=== PATIENT | male | born 1955 | race Caucasian/White ===

== ENCOUNTER → 2021-10-17 | Outpatient (CLI) | payer MEDICARE, SELFPAY ==
[2021-10-17 11:54] LABS: Absolute Lymphocyte Count 2.51 X10^3/uL (0.83-4.51); Absolute Neutrophil Count 5.7 X10^3/uL (2.0-7.7); Basophil# 0.05 X10^3/uL; Basophil% 0.5 % (0-1); Eosinophil# 0.53 X10^3/uL; Eosinophils% 5.5 % (0-5); Hematocrit 41.4 % (40-54); Hemoglobin 13.4 g/dL (13.0-16.5); Lymphocyte # 2.51 X10^3/ul (0.83-4.51); Lymphocyte % 26.1 % (19-41); Mean Corp Hgb Conc 32.4 g/dL (32-36); Mean Corpuscular Hgb 30.2 pg (27.0-32.0); Mean Corpuscular Volume 93.2 fL (80-94); Mean Platelet Vol. 9.7 fl (6.2-12.0); Monocyte% 8.3 % (0-10); NRBC Flagged by Analyzer 0 % (0-5); Neutrophil % 59.2 % (47-70); Platelet Count 265 K/mm3 (150-450); RBC Distribution Width CV 14.6 % (11.6-14.6); Red Blood Count 4.44 M/mm3 (4.6-6.2); White Blood Count 9.6 K/mm3 (4.4-11.0)
[2021-10-17 13:00] LABS: ALB/GLOB Ratio 0.7 RATIO (0.9-2.4); AST(SGOT) 18 U/L (15-37); Alanine Aminotransfer ALT/SGPT 17 U/L (16-61); Albumin, Serum 3.3 g/dL (3.2-5.0); Alkaline Phosphatase 87 U/L (45-117); Anion Gap 4 (5-15); BUN 19 mg/dL (7-18); BUN/Creat Ratio 13.7 RATIO (10-20); Calcium,Total 8.8 mg/dL (8.5-10.1); Chloride 108 mmol/L (98-107); Cholesterol 210 mg/dL (200); Creatinine, Serum 1.39 mg/dL (0.70-1.30); EST Glomerular Filtration Rate 54 mL/min (>60); Est Glom Filt Rate - Afr Amer 66 mL/min (>60); Globulin 4.8 g/dL (2.2-4.2); Glucose 81 mg/dL (74-106); High Density Lipoprotein 52 mg/dL; PSA,Total - Annual Screen 0.93 ng/mL (0.00-4.00); Potassium 4.9 mmol/L (3.5-5.1); Protein, Total 8.1 g/dL (6.4-8.2); Sodium Level 138 mmol/L (136-145); Thyroid Stim Hormone (TSH) 2.06 uIU/mL (0.358-3.74); Triglycerides 46 mg/dL; Very Low Density Lipoprotein 9 mg/dL (5-40)
[2021-10-17 13:46] LABS: Hepatitis C Antibody Non-Reactive (Nonreactive)
[2021-10-20 15:08] LABS: PROEL- A/G Ratio 1.1 (0.7-1.7); PROEL- Albumin 3.9 g/dL (2.9-4.4); PROEL- Alpha-1 Globulin 0.2 g/dL (0.0-0.4); PROEL- Alpha-2 Globulin 0.9 g/dL (0.4-1.0); PROEL- Beta Globulin 1.1 g/dL (0.7-1.3); PROEL- Gamma Globulin 1.4 g/dL (0.4-1.8); PROEL- Globulin, Total 3.5 g/dL (2.2-3.9); PROEL- TOTAL PROTEIN 7.4 g/dL (6.0-8.5)
== END | disposition home or self-care (01) ==
LOC: LAB 10:28
PROVIDERS: PCP Internal Medicine; Referring Provider Internal Medicine; Visit Provider Internal Medicine
DX: E78.00 Pure hypercholesterolemia, unspecified (principal); Z11.59 Encounter for screening for other viral diseases; Z12.5 Encounter for screening for malignant neoplasm of prostate
CPT/HCPCS: 36415; 80053; 80061; 84153; 84165; 84443; 85025; 86803; G0103

== ENCOUNTER → 2021-10-26 | Outpatient (CLI) | payer MEDICARE, SELFPAY ==
[2021-10-31 12:07] LABS: PROEL- A/G Ratio 0.9 (0.7-1.7); PROEL- Albumin 3.6 g/dL (2.9-4.4); PROEL- Alpha-1 Globulin 0.3 g/dL (0.0-0.4); PROEL- Alpha-2 Globulin 0.9 g/dL (0.4-1.0); PROEL- Beta Globulin 1.2 g/dL (0.7-1.3); PROEL- Gamma Globulin 1.5 g/dL (0.4-1.8); PROEL- Globulin, Total 3.8 g/dL (2.2-3.9); PROEL- TOTAL PROTEIN 7.4 g/dL (6.0-8.5); PROELU- Albumin, Urine 36.5 % (.); PROELU- Alpha-1-Globulin,Ur 0.7 % (.); PROELU- Alpha-2-Globulin,Ur 5.1 % (.); PROELU- Beta Globulin, Ur 20.7 % (.); PROELU- Gamma Globulin, Ur 36.9 % (.)
== END | disposition home or self-care (01) ==
LOC: LAB 10:01
PROVIDERS: PCP Internal Medicine; Referring Provider Internal Medicine; Visit Provider Internal Medicine
DX: Z85.828 Personal history of other malignant neoplasm of skin (principal)
CPT/HCPCS: 36415; 84165; 84166

== ENCOUNTER → 2022-04-23 | Outpatient (CLI) | payer MEDICARE, SELFPAY ==
--- NOTE | 2022-04-23 10:37 | ECHOD_ITS ---
Reason For Study: ABN EKG Procedure This was a 2D Doppler, Color Flow transthoracic echocardiogram. Exam performed in department. Left Ventricle Normal LV size. Left ventricular systolic function is normal. Stage 1 diastolic dysfunction. No regional wall motion abnormalities noted. Right Ventricle Normal RV size. Normal systolic function. Atria Normal left atrium. Normal right atrium. Mitral Valve Normal mitral valve. Tricuspid Valve Normal tricuspid valve. Mild (1+) tricuspid valve insufficiency. Pulmonary artery systolic pressure is 30 mmHg. Aortic Valve Normal aortic valve. Pulmonic Valve Normal pulmonic valve. Great Vessels Normal aortic root. The pulmonary artery is normal size. Normal inferior vena cava. Pericardium/Pleural No pericardial effusion. MMode/2D Measurements & Calculations LVIDd: 5.1 cm IVSd: 1.1 cm Ao root diam: 3.5 cm LVIDs: 4.2 cm LVPWd: 0.96 cm FS: 17.4 % LAV(MOD-sp4): 67.1 ml LVAd ap4: 32.6 cm2 SV(MOD-sp4): 59.1 ml LVLd ap4: 8.4 cm EDV(MOD-sp4): 107.3 ml EDV(sp4-el): 107.7 ml LVAs ap4: 19.5 cm2 LVLs ap4: 7.0 cm ESV(MOD-sp4): 48.2 ml ESV(sp4-el): 45.9 ml EF(MOD-sp4): 55.0 % EF(sp4-el): 57.4 % SV(sp4-el): 61.8 ml LA A4 area: 21.4 cm2 RA A4 area: 14.2 cm2 Time Measurements MV dec time: 0.15 sec Doppler Measurements & Calculations MV E max damon: 65.8 cm/sec Lat Peak E' Damon: 11.2 cm/sec Med Peak E' Damon: 9.5 cm/sec MV A max damon: 75.2 cm/sec E/E' lat: 5.9 E/E' med: 6.9 MV E/A: 0.87 MV V2 max: 84.7 cm/sec Ao V2 max: 102.8 cm/sec MV max P.9 mmHg MV dec slope: 520.9 cm/sec2 Ao max P.2 mmHg MV V2 mean: 61.3 cm/sec Ao V2 mean: 71.8 cm/sec MV mean P.6 mmHg Ao mean P.3 mmHg MV V2 VTI: 25.7 cm Ao V2 VTI: 23.1 cm AV (velocity ratio): 0.91 LV V1 max: 100.0 cm/sec PA V2 max: 86.2 cm/sec TR max damon: 251.2 cm/sec LV V1 max P.0 mmHg PA V2 mean: 55.9 cm/sec TR max P.2 mmHg LV V1 mean P.3 mmHg LV V1 mean: 71.1 cm/sec LV V1 VTI: 21.1 cm ECHO/Echo Complete Interpretation Summary Normal LV size. Stage 1 diastolic dysfunction. Left ventricular systolic function is normal. Pulmonary artery systolic pressure is 30 mmHg. Ordering Physician: Haylee Elizondo Referring Physician: Haylee Elizondo Performed By: Marielle Mccoy RCS
--- NOTE | 2022-04-23 10:37 | EKG12_ITS ---
Test Reason : ABN EKG Blood Pressure : / mmHG Vent. Rate : 072 BPM Atrial Rate : 072 BPM P-R Int : 150 ms QRS Dur : 086 ms QT Int : 372 ms P-R-T Axes : 076 004 -09 degrees QTc Int : 407 ms Normal sinus rhythm Normal ECG Confirmed by SHASHANK COBURN, RONALD ([id number]), newspaper editor CY WELLS ([id number]) on 04/24/2022 9:50:53 AM Referred By: Haylee Elizondo Confirmed By:RONALD ENCARNACION MD
== END | disposition home or self-care (01) ==
LOC: CVS 10:35
PROVIDERS: PCP Internal Medicine; Referring Provider Nurse Practitioner Family; Visit Provider Nurse Practitioner Family
DX: R94.31 Abnormal electrocardiogram [ECG] [EKG] (principal); R09.89 Other specified symptoms and signs involving the circulatory and respiratory systems
CPT/HCPCS: 93005; 93306

== ENCOUNTER → 2023-10-15 | Outpatient (CLI) | payer MEDICARE, SELFPAY ==
--- NOTE | 2023-10-15 14:36 | CT_ITS ---
STUDY: LOW DOSE CT LUNG CANCER SCREENING REASON FOR EXAM: Male, 68 years old. LDCT FOR LUNG CA SCREEN -- Current smoker RADIATION DOSAGE (If Supplied By Facility): CTDIvol = ( 2.39 ) mGy, DLP = ( 86.08 ) mGycm TECHNIQUE: No contrast was administered. Low dose technique was utilized (average mAS-38 and kVp 120). 1.25 mm axial source images with a slice interval of 1.25-mm were reconstructed in lung windows. 2.5 mm axial source images with a slice interval of 2.5-mm were reconstructed in lung windows. 5.0 mm axial source images with a slice interval of 5.0-mm were reconstructed in soft tissue windows. COMPARISON: None. NODULES: No suspicious nodules are seen. Emphysema: Hyperinflation. Emphysematous changes. Bullous formation in the medial aspect of the right upper lobe. Scarring at the right lung base. Calcified granulomas in the posterior aspect of the left lower lobe. Endobronchial lesion: None Aorta: Atherosclerotic plaque formation of the aortic arch. CORONARY ARTERIES: Coronary artery calcification is seen. Heart: Unremarkable Pulmonary artery: Unremarkable Mediastinal nodes: Small mediastinal lymph nodes. Other chest and abdominal findings: CT/Low Dose CT Lung Screening IMPRESSION: Lung-RADS category 2 - Continue annual screening with LDCT in 12 months. IMPORTANT NOTES FOR USE: ACR Lung-RADS Version 1.1 Assessment Categories Release Date: 2018 Category: Coded 0-4 bases on nodule(s) with highest degree of suspicion. Negative screen is defined as categories 1 and 2; a positive screen is defined as categories 3 and 4. Category 3 and 4A nodules that are unchanged on interval CT should be coded as category 2, and individuals returned to screening in 12 months. Category 4X: Category 3 or 4 nodules with additional imaging findings that increase the suspicion of lung cancer, such as spiculation, GGN that doubles in size in 1 year, enlarged lymph notes, etc. Category Modifiers: S (significant finding unrelated to lung cancer) Electronically Signed: Ruddy Rucker MD at 15:42 EDT ,
== END | disposition home or self-care (01) ==
LOC: CT 14:35
PROVIDERS: PCP Internal Medicine; Referring Provider Internal Medicine; Visit Provider Internal Medicine
DX: F17.210 Nicotine dependence, cigarettes, uncomplicated (principal)
CPT/HCPCS: 71271

== ENCOUNTER → 2023-11-15 | Outpatient (CLI) | payer MEDICARE, SELFPAY | END | disposition home or self-care (01) | LOC: PSN 09:27 | PROVIDERS: PCP Internal Medicine; Referring Provider Internal Medicine; Visit Provider Internal Medicine | DX: J43.9 Emphysema, unspecified (principal) | CPT/HCPCS: 94060; 94726; 94729 ==

== ENCOUNTER 2024-11-02 16:38 | Observation (INO) | payer MEDICARE, SELFPAY ==
--- NOTE | 2024-10-22 10:30 | EKG12_ITS ---
Test Reason : PREOP Blood Pressure : */* mmHG Vent. Rate : 59 BPM Atrial Rate : 59 BPM P-R Int : 160 ms QRS Dur : 76 ms QT Int : 406 ms P-R-T Axes : 67 6 6 degrees QTcB Int : 401 ms Sinus bradycardia Nonspecific ST and T wave abnormality Abnormal ECG Confirmed by ALYSA DAVISON ([id number]), rewrite editor CY WELLS ([id number]) on 10/23/2024 5:44:42 AM Referred By: Apolinar Chavez Confirmed By: ALYSA DAVISON
[2024-10-22 11:17] LABS: Hematocrit 42.1 % (40-54); Hemoglobin 13.6 g/dL (13.0-16.5); Immature Granulocytes Count 0.030 X10^3/uL (0.0-0.0); Mean Corp Hgb Conc 32.3 g/dL (32-36); Mean Corpuscular Volume 92.9 fL (80-94); Mean Platelet Vol. 9.1 fl (6.2-12.0); NRBC Flagged by Analyzer 0 % (0-5); Platelet Count 252 K/mm3 (150-450); RBC Distribution Width CV 14.0 % (11.6-14.6); RBC Distribution Width SD 47.8 fl (35.1-43.9); Red Blood Count 4.53 M/mm3 (4.6-6.2); White Blood Count 9.0 K/mm3 (4.4-11.0)
[2024-10-22 12:02] LABS: Magnesium 2.0 mg/dL (1.5-2.2)
[2024-10-22 12:14] LABS: Anion Gap 8 (5-15); BUN 22 mg/dL (4-19); BUN/Creat Ratio 15.3 RATIO (10-20); Calcium,Total 9.4 mg/dL (7.6-11.0); Carbon Dioxide 25.0 mmol/L (21.0-32.0); Chloride 106 mmol/L (98-108); Glucose 106 mg/dL (70-99); Potassium 4.8 mmol/L (3.3-5.1)
--- NOTE | 2024-10-22 12:32 | PAT.ANESEVAL ---
Pre-Assessment Diagnosis/Proposed Procedure Planned Operative Procedure(s): ERAS LUMBAR LAMINECTOMY L3-4 L4-5 Anesthesia History Anesthesia History - surgical corsetier: Anesthesia History - surgical corsetier Hx Hospitalization No 10/19/24 14:03 Any Problems With Anesthesia No 10/19/24 14:03 Cholinesterase deficiency No 10/19/24 14:03 You/Your Family Experience No 10/19/24 14:03 fever (hyperthermia) with Relationship Recent Exposure to Contagious Disease Does patient have nerve No 10/19/24 14:03 stimulator Patient instructed to have device shut off --Does patient have Pacemaker or ICD? When Was Last Pacemaker Check QUESTION #4 FULL TEXT: You/Your Family Experience fever (hyperthermia) with Anesthesia Last Oral Intake Last Oral intake: Last Oral Intake NPO since Meds taken in AM with sips of water? Meds patient instructed to take am of surgery PONV PONV - surgical corsetier: PONV - surgical corsetier Female No 10/19/24 14:03 HX of Motion Sickness No 10/19/24 14:03 HX of N/V After Surgery No 10/19/24 14:03 Non-Smoker Yes 10/19/24 14:03 Duration of Surgery greater Yes 10/19/24 14:03 than 60 minutes Number of Risk Factors 2 10/19/24 14:03 PONV Score Moderate Risk 10/19/24 14:03 Height & Weight Height & Weight: Anesthesia: Height & Weight Height 6 ft 09/15/24 09:47 Respiratory Assessment Respiratory Assessment - surgical corsetier: Respiratory Tract Infection Hx - surgical corsetier Hx Respiratory Tract Infection No 10/19/24 14:03 STOP Sleep Apnea STOP Sleep Apnea - surgical corsetier: STOP Sleep Apnea - surgical corsetier Hx Hypertension Yes: CONTROLLED WITH MED 10/19/24 14:03 Hx Sleep Apnea No 10/19/24 14:03 CPAP BIPAP Do you snore loudly (louder Yes 10/19/24 14:03 than talking or can be heard Do you often feel tired/ No 10/19/24 14:03 fatigued/ sleepy during daytime? Has anyone observed you stop Yes 10/19/24 14:03 breathing during sleep? STOP Results Positive 10/19/24 14:03 QUESTION #5 FULL TEXT : Do you snore loudly (louder than talking or can be heard through closed doors)? 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 Specify any problems Hx of Preganancy in last 3 N/A 10/19/24 14:03 Months Nurse Filling Out Transfusion DSCHRIBER 10/19/24 14:03 & Questions: Date: 10/19/24 10/19/24 14:03 Time: 14:05 10/19/24 14:03 Patient unable to answer at this time (ie. confused, unrespo /Reproduction History /Reproductive History - surgical corsetier: /Reproductive Hx- surgical corsetier Hx Now No 10/19/24 14:03 Gestational Age (in weeks): EDC: Hx Hx Para Hx Section SAB No 10/19/24 14:03 PFSH Medical History (Updated 10/19/24 @ 14:12 by Aminah Brink) Wears glasses Cancer Marijuana use Arthritis High cholesterol Back pain History of diverticulitis COPD (chronic obstructive pulmonary disease) Non-smoker Cardiology follow-up encounter History of pain when walking Hypertension History of stress test PAD (peripheral artery disease) Vertigo, intermittent Syncope and collapse Home Medications ?Medication ?Instructions ?Recorded ?Last Taken ?Type aspirin 81 mg tablet,delayed 81 mg PO QDAY 03/25/24 Unknown History release atenolol 25 mg tablet 12.5 mg PO QHS 03/25/24 Unknown History cholecalciferol (vitamin D3) 75 75 mcg PO QDAY 03/25/24 Unknown History mcg (3,000 unit) tablet coenzyme Q10 100 mg capsule 100 mg PO QDAY 03/25/24 Unknown History (CoQ-10) cyanocobalamin (vitamin B-12) 500 500 mcg sublingual QDAY 03/25/24 Unknown History mcg disintegrating tablet,sublingual vitamin K2 100 mcg capsule 100 mcg PO QDAY 03/25/24 Unknown History zinc sulfate 50 mg zinc (220 mg) 50 mg PO QDAY 03/25/24 Unknown History capsule (Zinc-220) Allergy/AdvReac Type Severity Reaction Status Date / Time No Known Allergies Allergy Verified 10/19/24 13:58 Family History Grandmother Heart disease Father Heart disease Brother Diabetes Surgical History (Updated 10/19/24 @ 14:12 by Aminah Brink) Hx of colonoscopy History of Mohs surgery for squamous cell carcinoma of skin Hx of appendectomy Social History Smoking Status: Former smoker Tobacco: How many years used: 53 alcohol intake: never substance use type: does not use Audit: Pertinent Findings Pertinent Findings EKG Perinent findings: October 22, 2024. Sinus bradycardia at [address] and T wave abnormality. Echo (EF%) pertinent findings: April 23, 2022. Normal LV function. PASP is 30 mmHg. No aortic stenosis noted. Recommendation Anesthesia Recommendation Anesthesia recommendation: OPTIMIZED for anesthesia
[2024-10-22 19:17] LABS: PSA,Total - Annual Screen 0.84 ng/mL (0.02-4.00)
[2024-10-22 19:31] LABS: Cholesterol 196 mg/dL (<=200); Low Density Lipoprotein Calc. 135 mg/dL; Triglycerides 80 mg/dL; Very Low Density Lipoprotein 16 mg/dL (5-40); cholesterol:hdl ratio screen 4.36
[2024-11-02] VITALS (13 sets, daily range): BP systolic 106–156; BP diastolic 51–79; PULSE 63–83; RESP 14–18; TEMP 36.1–37.5; O2SAT 94–100; BMI 26.9
[2024-11-02] MEDS: Magnesium 1 GM over 15 mins IV (12:40)
[2024-11-02] MEDS: Lactated Ringers 1,000 ML 15 ML IV ×2 (12:40→16:52)
--- NOTE | 2024-11-02 13:12 | PCM.PRE.AN2 ---
ASA Classification* ASA Classification ASA Classification: 2 Assessment & Plan Anesthesia* Anesthesia Assessment Anesthesia Assessment: Discussed sedation and/or anesthesia options, risks, benefits, and alternatives with patient/parents/legal guardian/POA. Questions invited. The patient/parents/legal guardian/POA seems to understand and agrees to proceed with anesthesia plan. Reviewed the physical assessment, medical history, allergy history and patient home medications list prior to surgery/procedure/anesthetic and documented any changes. Performed airway and anesthesia risk assessments. Anesthesia Type Anesthesia Type: General History Source History Obtained from:: Patient and Chart Anesthesia Focused Assessment* Temperature: 99.5 F Pulse Rate: 83 Blood Pressure: 156/79 Respiratory Rate: 16 Pulse Ox: 98 Oxygen Delivery Method: Room Air Airway Assessment Mouth opens: >3 cm Mallampati Score: II Teeth Condition: Chipped/Broken Neck Range of motion (ROM): Full ROM Labs Anesthesia Preop lab: CBC WBC 9.0 K/mm3 (4.4-11.0) 10/22/24 10:56 10/22/24 RBC 4.53 M/mm3 (4.6-6.2) L 10/22/24 10:56 10/22/24 Hgb 13.6 g/dL (13.0-16.5) 10/22/24 10:56 10/22/24 Hct 42.1 % (40-54) 10/22/24 10:56 10/22/24 Plt Count 252 K/mm3 (150-450) 10/22/24 10:56 10/22/24 CHEMISTRY Potassium 4.8 mmol/L (3.3-5.1) 10/22/24 10:56 10/22/24 Sodium 140 mmol/L (133-145) 10/22/24 10:56 10/22/24 Magnesium 2.0 mg/dL (1.5-2.2) 10/22/24 10:57 10/22/24 BUN 22 mg/dL (4-19) H 10/22/24 10:56 10/22/24 Creatinine 1.42 mg/dL (0.70-1.20) H 10/22/24 10:56 10/22/24 Glucose 106 mg/dL (70-99) H 10/22/24 10:56 10/22/24 TSH 2.320 uIU/mL (0.300-4.200) 10/22/24 10:57 10/22/24 COAG Pre-Assessment Diagnosis/Proposed Procedure Planned Operative Procedure(s): ERAS LUMBAR LAMINECTOMY L3-4 L4-5 Anesthesia History Anesthesia History - food service aide: Anesthesia History - food service aide Hx Hospitalization No 10/19/24 14:03 Any Problems With Anesthesia No 10/19/24 14:03 Cholinesterase deficiency No 10/19/24 14:03 You/Your Family Experience No 10/19/24 14:03 fever (hyperthermia) with Relationship Recent Exposure to Contagious No 11/02/24 12:36 Disease Does patient have nerve No 10/19/24 14:03 stimulator Patient instructed to have device shut off --Does patient have Pacemaker or ICD? When Was Last Pacemaker Check QUESTION #4 FULL TEXT: You/Your Family Experience fever (hyperthermia) with Anesthesia Last Oral Intake Last Oral intake: Last Oral Intake NPO since 23:00 11/02/24 12:36 Meds taken in AM with sips of No 11/02/24 12:36 water? Meds patient instructed to take am of surgery PONV PONV - food service aide: PONV - food service aide Female No 10/19/24 14:03 HX of Motion Sickness No 10/19/24 14:03 HX of N/V After Surgery No 10/19/24 14:03 Non-Smoker Yes 10/19/24 14:03 Duration of Surgery greater Yes 10/19/24 14:03 than 60 minutes Number of Risk Factors 2 10/19/24 14:03 PONV Score Moderate Risk 10/19/24 14:03 Height & Weight Height & Weight: Anesthesia: Height & Weight Height 6 ft 11/02/24 12:36 Weight: 90 kg 11/02/24 12:36 Body Mass Index (BMI) 26.9 11/02/24 12:36 Respiratory Assessment Respiratory Assessment - food service aide: Respiratory Tract Infection Hx - food service aide Hx Respiratory Tract Infection No 10/19/24 14:03 STOP Sleep Apnea STOP Sleep Apnea - food service aide: STOP Sleep Apnea - food service aide Hx Hypertension Yes: CONTROLLED WITH MED 10/19/24 14:03 Hx Sleep Apnea No 10/19/24 14:03 CPAP BIPAP Do you snore loudly (louder Yes 10/19/24 14:03 than talking or can be heard Do you often feel tired/ No 10/19/24 14:03 fatigued/ sleepy during daytime? Has anyone observed you stop Yes 10/19/24 14:03 breathing during sleep? STOP Results Positive 10/19/24 14:03 QUESTION #5 FULL TEXT : Do you snore loudly (louder than talking or can be heard through closed doors)? 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 Specify any problems Hx of Preganancy in last 3 N/A 10/19/24 14:03 Months Nurse Filling Out Transfusion DSCHRIBER 10/19/24 14:03 & Questions: Date: 10/19/24 10/19/24 14:03 Time: 14:05 10/19/24 14:03 Patient unable to answer at this time (ie. confused, unrespo /Reproduction History /Reproductive History - food service aide: /Reproductive Hx- food service aide Hx Now No 10/19/24 14:03 Gestational Age (in weeks): EDC: Hx Hx Para Hx Section SAB No 10/19/24 14:03 Active Medications Active Medications: Current Medications Generic Name Dose Route Start Last Admin Trade Name Freq PRN Reason Stop Dose Admin Acetaminophen 1,000 mg 11/02/24 14:15 11/02/24 12:40 Acetaminophen 500 Mg Tablet PO 11/02/24 14:16 1,000 mg PREOP ONE Administration Cefazolin Sodium 2 gm/ Sodium 110 mls @ 150 mls/hr 11/02/24 14:15 Chloride IV 11/02/24 14:58 INTRAOP ONE Tranexamic Acid 1,000 mg/ 110 mls @ 440 mls/hr 11/02/24 14:15 Sodium Chloride IV 11/02/24 14:29 INTRAOP ONE Tranexamic Acid 1,000 mg/ 110 mls @ 440 mls/hr 11/02/24 14:15 Sodium Chloride IV 11/02/24 14:29 INTRAOP ONE Magnesium Sulfate 1 gm/ 102 mls @ 408 mls/hr 11/02/24 14:15 11/02/24 12:40 Dextrose IV 11/02/24 14:29 408 mls/hr PREOP ONE Administration Lactated Ringer's 1,000 mls @ 15 mls/hr 11/02/24 12:15 11/02/24 12:40 IV 15 mls/hr .Q48H REGLA Administration Insulin Human Lispro 1 - 6 unit 11/02/24 14:15 Insulin Lispro 100 Unit/Ml Insuln.Pen SC 11/02/24 18:00 Q4H PRN PRN BG>/= 180, SEE PROTOCOL Protocol PFSH Medical History Wears glasses Cancer Marijuana use Arthritis High cholesterol Back pain History of diverticulitis COPD (chronic obstructive pulmonary disease) Non-smoker Cardiology follow-up encounter History of pain when walking Hypertension History of stress test PAD (peripheral artery disease) Vertigo, intermittent Syncope and collapse Home Medications ?Medication ?Instructions ?Recorded ?Last Taken ?Type aspirin 81 mg tablet,delayed 81 mg PO QDAY 03/25/24 10/26/24 History release atenolol 25 mg tablet 12.5 mg PO QHS 03/25/24 11/01/24 21:35 History cholecalciferol (vitamin D3) 75 75 mcg PO QDAY 03/25/24 10/29/24 History mcg (3,000 unit) tablet coenzyme Q10 100 mg capsule 100 mg PO QDAY 03/25/24 10/29/24 History (CoQ-10) cyanocobalamin (vitamin B-12) 500 500 mcg sublingual QDAY 03/25/24 10/29/24 History mcg disintegrating tablet,sublingual vitamin K2 100 mcg capsule 100 mcg PO QDAY 03/25/24 10/29/24 History zinc sulfate 50 mg zinc (220 mg) 50 mg PO QDAY 03/25/24 10/29/24 History capsule (Zinc-220) Allergy/AdvReac Type Severity Reaction Status Date / Time No Known Allergies Allergy Verified 11/02/24 12:35 Family History Grandmother Heart disease Father Heart disease Brother Diabetes Surgical History Hx of colonoscopy History of Mohs surgery for squamous cell carcinoma of skin Hx of appendectomy Social History Smoking Status: Former smoker Tobacco: How many years used: 53 alcohol intake: never substance use type: does not use Review of Systems (Anesthesia) ROS Narrative System reviewed and no additional complaints, except as documented.
--- NOTE | 2024-11-02 13:58 | PCM.HP.BLA ---
History and Physical Date of Admission: 11/02/24 MR#: [id number] Acct: [id number] Name: ALFREDO BARROSO Rep #: [id number] : 1955 Provider: Dr. Apolinar Chavez MD Age/Sex: 69/M Location: [facility] [email or web address] Status: Signed Intake Vital Signs 09/15/2508:47 10/23/2512:15 Height 6 ft 6 ft Weight: 212 lb 2 oz 209 lb BMI 28.8 28.3 Intake Visit Reasons: lumbar spine Chief Complaint: Lumbar spine preo op Accompanied by: Is patient in pain?: Yes Pain scale (1-10): 2 Allergies No Known Allergies Allergy (Verified 10/23/24 13:20) Medications ?Medication ?Instructions ?Recorded ?Confirmed ?Type aspirin 81 mg tablet,delayed 81 mg PO QDAY 03/25/24 10/23/24 History release atenolol 25 mg tablet 12.5 mg PO QHS 03/25/24 10/23/24 History cholecalciferol (vitamin D3) 75 75 mcg PO QDAY 03/25/24 10/23/24 History mcg (3,000 unit) tablet coenzyme Q10 100 mg capsule 100 mg PO QDAY 03/25/24 10/23/24 History (CoQ-10) cyanocobalamin (vitamin B-12) 500 500 mcg sublingual QDAY 03/25/24 10/23/24 History mcg disintegrating tablet,sublingual vitamin K2 100 mcg capsule 100 mcg PO QDAY 03/25/24 10/23/24 History zinc sulfate 50 mg zinc (220 mg) 50 mg PO QDAY 03/25/24 10/23/24 History capsule (Zinc-220) Have you fallen in the past year?: No PFSH Medical History Wears glasses Cancer Marijuana use Arthritis High cholesterol Back pain History of diverticulitis COPD (chronic obstructive pulmonary disease) Non-smoker Cardiology follow-up encounter History of pain when walking Hypertension History of stress test PAD (peripheral artery disease) Vertigo, intermittent Syncope and collapse Surgical History Hx of colonoscopy History of Mohs surgery for squamous cell carcinoma of skin Hx of appendectomy Family History Grandmother Heart diseaseFather Heart diseaseBrother Diabetes Social History Smoking Status: Former smoker Tobacco: How many years used: 53 alcohol intake: never substance use type: does not use HPI lumbar spine Details: This documentation accurately reflects the service provided and the decisions made by me, Dr. Apolinar Chavez MD 10/23/24 1315. Part of today?s visit was documented by Gilberto Mercado MA, acting as scribe. ALFREDO BARROSO is a 69 year old M here today for lumbar spine pre op. Patient states that his pain is a 2 today. He states that he would to discuss about the surgery, and what he needs to do for the surgery. Patient would like to know what he can and can't don after the surgery. He states that he would like all the details about recovery. The patient is a 69-year-old male presenting with symptoms of lumbar spinal stenosis and neurogenic claudication. The patient reports a history of lumbar spinal stenosis, characterized by significant nerve compression at the L3-4 and L4-5 levels due to arthritic changes. The condition has led to neurogenic claudication, with symptoms including bilateral leg numbness and pain that worsens with standing and walking, and improves with sitting or leaning forward. The patient describes the numbness as starting in the right leg and sometimes affecting the left, with alternating hip soreness. The patient has been advised to undergo a laminectomy to relieve nerve compression, which is expected to alleviate the leg symptoms but not address the underlying arthritis. He has been informed of the potential for future instability and the possibility of requiring further surgical intervention if symptoms persist or worsen. The patient has a history of arterial calcification, for which he takes baby aspirin as prescribed by his family doctor. He has been instructed to discontinue aspirin prior to surgery to minimize bleeding risks. The patient quit smoking nine months ago, which is beneficial for his surgical recovery and overall health. - Neurological: Reports bilateral leg numbness and alternating hip soreness. Denies weakness or falls. - Musculoskeletal: Reports pain in legs with standing and walking, improves with sitting or leaning forward. Denies back pain. Attestation: Documentation on this patient encounter was supported using ambient scribe technology/ voice AI technology. The patient consented to recording for the purpose of documenting the encounter. Provider reviewed content of the generated note prior to signature. 09/15/24: ALFREDO BARROSO is a 68 year old M here today for lumbar spine. Patient is not having pain in the lower back. Pain goes down both of the legs. The right leg is a lot worse then the left leg. The left leg pain goes down the lateral side of the left leg below the knee to the ankle. He denies any thigh pain. Right sided leg pain extends from his lateral hip down the side of his lateral thigh and down the entire lateral leg to the foot. The pain is a constant ache. When the pain hits in the legs it's like a sharp stabbing pain. He does get numbness in the right foot and toes. Patient states that he has more numbness then pain. This has been going on for years, but has been gradually getting worse the past 8 weeks. Patient lifted a deck 28 years ago, and felt a pop in his back. Dr. Pereyra put him on a statin about 2 months ago, and it just made the back pain worse. Patient hasn't had any back surgeries in the past. Standing in one spot for a long period of time makes the pain worse. Says that he can only stand for several minutes at a time before the pain worsens. Walking long distances makes the pain worse. Patient hasn't had any injections for his back. He has tried physical therapy 2 months ago and it didn't help. Patient did the physical therapy at [facility]. Patient denies any diabetes, or blood thinners. Hx of PAD sees vascular. Patient quit smoking 8 months ago, denies any drug use. Patient states that his balance is okay. He has noticed that his stride is different, like he's walking smaller steps. No cane or walker. Right sided appendectomy. Ortho Exam General General: Yes no acute distress Neurologic: Yes alert and Yes oriented x3 Psychologic: Yes reasonable and appropriate Spine SPINE TESTING CERVICAL THORACIC LUMBAR Musculoskeletal Strength 0=absent - 5=normal Details: Neurological exam of the lower extremities shows 5x5 power. Normal sensations across all dermatomes. No hyperreflexia. No midline or paraspinal tenderness. Coding Level of Care Code Off vis,est,level 4 Diagnoses Lumbar stenosis with neurogenic claudication M48.062 Time Spent (min) 35 Assessment and Plan Assessment and Plan (1) Lumbar stenosis with neurogenic claudication: Status: Acute Plan X-rays show a mild multilevel degenerative change throughout the lumbar spine, no significant instability, no acute fractures. Reviewed prior AP and lateral x-rays done by [facility]. Reviewed lumbar MRI from August 24, 2024 which showed L3-4 disc bulge with moderate facet hypertrophy and ligamentum flavum hypertrophy resulting in a high-grade spinal stenosis with mild bilateral lateral recess stenosis, all 4-5 disc bulge with facet arthropathy and ligamentum flavum hypertrophy resulting in high-grade spinal stenosis and high-grade right and moderate left lateral recess stenosis. 1. Lumbar spinal stenosis - The patient is scheduled for a laminectomy to relieve nerve compression at L3-4 and L4-5 levels. - This procedure is expected to alleviate neurogenic claudication symptoms. - The patient has been informed of the potential for future instability and the possibility of requiring further surgical intervention if symptoms persist or worsen. 2. Neurogenic claudication - Symptoms include bilateral leg numbness and pain that worsens with standing and walking, improving with sitting or leaning forward. - The planned laminectomy aims to address these symptoms by decompressing the affected nerves. 3. Arterial calcification - The patient is advised to discontinue baby aspirin prior to surgery to minimize bleeding risks. - He is not currently under the care of a vacuum cleaner operator but follows up with his family doctor for this condition. - Stop taking baby aspirin before surgery as instructed by your doctor. - Expect to walk and move around as soon as possible after surgery to aid recovery. - Avoid heavy lifting and excessive bending or twisting for three months post-surgery. - Follow up with your doctor as scheduled for post-operative care. Explained the imaging findings in detail. Discussed options with the patient which includes epidural steroid injections with pain management versus surgery. Discussed an L3-5 laminectomy procedure. Explained the procedure in detail. Explained risks and benefits. The patient's leg pain has made it difficult for him to do what he wishes to do. He is only able to walk 100-200 feet at a time before he has to sit down due to the increase in pain. He is also only able to stand for several minutes at a time before the back pain worsens and he has to sit back down. This has greatly decreased his quality of life. Because of this he wishes to proceed with surgical intervention at this time. Discussed this procedure in detail and explained the risks, benefits and alternatives. The risks of surgery include but are not limited to infection, bleeding, injury to nerves and vessels, hematoma formation, need for further surgery, need for fusion in the future, continued disc degeneration, discitis, persistent pain, persistent numbness and weakness, DVT, pulmonary embolism, pneumonia, atelectasis, iatrogenic instability, cardiopulmonary event. Answered all questions to the patient?s satisfaction. Patient understands and agrees to proceed with surgery. Consent was signed.Follow up 2 weeks post operative or sooner if pain, swelling, numbness or associated symptoms, or concerns develop. All questions answered. Patient in agreement of plan.
[2024-11-02] MEDS: Midazolam 2 MG/2 ML Syringe IV (14:22)
[2024-11-02] MEDS: Cefazolin 1 GM/5 ML Vial 2 GM IV (14:22)
[2024-11-02] MEDS: Lidocaine 1% (5 ml sdv) 5 ML Vial 10 ML IV (14:27)
[2024-11-02] MEDS: fentaNYL 100 MCG/2 ML Ampul IV (14:27)
[2024-11-02] MEDS: PROPOFOL 37.44 MG IV (14:39)
--- NOTE | 2024-11-02 14:50 | RAD_ITS ---
PROCEDURE: LUMBAR SPINE 2 OR 3 VIEWS; O.R. FLUORO FOR C-ARM 11/02/2024 REASON FOR EXAM: LUMBAR LAMINECTOMY L3-4 L4-5 TECHNIQUE: Procedure Code: RADSPLL; RADORFL_C_ARM Modality: DX Procedure: LUMBAR SPINE 2 OR 3 VIEWS; O.R. FLUORO FOR C-ARM. Fluoroscopy time: 4.6 seconds. COMPARISON: Lumbar MRI 08/24/2024 and lumbar spine series of 07/07/2024. RAD/O.R. Fluoro for C-Arm IMPRESSION: Intraoperative fluoroscopy for lumbar surgery was performed. A solitary fluoro scopic image is also presented, with marker seen posterior to the L3-L4 interspace.. Reading Location: [place] [id number]
--- NOTE | 2024-11-02 14:50 | RAD_ITS ---
PROCEDURE: LUMBAR SPINE 2 OR 3 VIEWS; O.R. FLUORO FOR C-ARM 11/02/2024 REASON FOR EXAM: LUMBAR LAMINECTOMY L3-4 L4-5 TECHNIQUE: Procedure Code: RADSPLL; RADORFL_C_ARM Modality: DX Procedure: LUMBAR SPINE 2 OR 3 VIEWS; O.R. FLUORO FOR C-ARM. Fluoroscopy time: 4.6 seconds. COMPARISON: Lumbar MRI 08/24/2024 and lumbar spine series of 07/07/2024. RAD/Lumbar Spine 2 or 3 Views IMPRESSION: Intraoperative fluoroscopy for lumbar surgery was performed. A solitary fluoro scopic image is also presented, with marker seen posterior to the L3-L4 interspace.. Reading Location: [place] [id number]
[2024-11-02] MEDS: TRANEXAMIC ACID 1,000 MG/10 ML ML 2000 MG IV (16:05)
--- NOTE | 2024-11-02 16:24 | OP.PCM_ITS ---
Procedures Musculoskeletal 20xxx-29xxx: Other Procedure See Report Operative Report (Standard) Operative Information Date of Procedure: 11/02/24 Pre-Operative Diagnosis: L3-5 stenosis with neurogenic claudication Post-Operative Diagnosis: Same Surgery/Procedure Performed: L3-5 laminectomy, partial facetectomy decompression admissions consultant: Yes Disciplinary Hearing Officer: Saige Swain Tasks completed by assistant distribution manager: Closing, Removing tissue, Hemostasis: Electrocautery and Retracting Type of Anesthesia: General RN Documented Start/Stop Times: Operation Date: 11/02/24 14:15 Case Time Into Pre-Op 11/02/24 12:10 Out of Pre-Op 11/02/24 14:21 Anesthesia Start 11/02/24 14:22 Into Room 11/02/24 14:22 Procedure Start 11/02/24 14:51 Procedure Start Time: 14:51 Procedure Stop Time: 16:30 Select all DRAINS/GRAFTS/IMPLANTS that apply: None Estimated Blood Loss: 40 cc Specimen collected: No Description of surgery: Preoperative diagnosis: L3-5 central lateral recess stenosis bilateral, neurogenic claudication Postoperative diagnosis: Same Name of procedure: L3-5 open laminectomy CPT 49848, 56202 Attending Surgeon: Dr. Apolinar Chavez Estimated blood loss: 40 mL Anesthesia: General Indications: Patient is a 69-year-old gentleman who presented with low back pain and right worse than left patient, with difficulty walking distances and neurogenic claudication. MRI revealed L3-5 central and bilateral lateral recess stenosis. All options of treatment were discussed which included continued nonoperative treatment measures like rest physical therapy, injections. After prolonged nonsurgical treatment, patient requested surgical intervention for laminectomy. All risks and benefits associated with the procedure were explained to the patient. The risks include but are not limited to infection, bleeding, injury to nerves and vessels, persistent paresthesia, incidental dural tear, recurrent disc herniation, spinal instability and need for fusion or other procedures in future, persistent pain, persistent weakness and numbness, etc. Procedure: The patient was identified in the preoperative holding suite using Unique patient identifiers. Skin was marked, consent was reviewed, and all questions were answered. The patient was then brought back to the operative room. A surgical timeout was performed to make sure correct procedure was being done on the correct patient and all operative room staff were on the same page. General endotracheal anesthesia was then given to the patient. The patient was then turned prone onto a Edison table over a Jarrett frame. The back was prepped and draped in usual fashion. Preoperative antibiotic was given. A final timeout was then again done just before starting the procedure. An 18-gauge spinal needle was inserted and level was identified. An incision was then carried out in the midline. Bovie was utilized to dissect through the subcutaneous tissue up to the fascia. The fascia was bovied at the spinous process. Subperiosteal dissection was carried out along the both side of the spinous process and the lamina. This dissection was stopped at the level of the medial capsule of the facet joint. Lateral edge of the pars was also identified. A [place] was then placed under the inferior edge of the lamina and a C-arm lateral view was repeated. The level was confirmed to be the L3-4 interspace. A Aldana retractor of appropriate depth was then placed to provide retraction throughout the remainder of the surgery. A bone cutter was used to remove the inferior L3 and entire L4 spinous process. [employer] bone scalpel was then utilized to first create a score along the area of the laminectomy. Care was taken to preserve at least 1 cm of bone from the lateral border of the pars. The bone scalpel was then advanced to perform the cuts along this score. The lamina was then removed with the help of Sita and curette removing any adhesions to structures in the canal. Partial medial facetectomy was performed and flavum was removed to provide adequate lateral recess decompression. Once decompression was adequately assessed with Tyler in both L3, L4 and L5 foramina bilaterally, irrigation was done with normal saline. Hemostasis was achieved with the help of Floseal and cotton patties. Irrisept was kept in the wound for 1 minute and then rinsed with saline. A small piece of Gelfoam was then placed over the bony window. The Aldana retractor was then removed. And closure was done in layers, 0 Vicryl for the deep fascia, 2-0 Vicryl for subcutaneous tissue, and 4-0 Monocryl for the skin. The deep fascial layer was closed in a watertight fashion with interrupted 0 Vicryl. The skin closure was augmented with Dermabond. 4 x 4 gauze was then placed over the wound covered with Tegaderm. The patient was then turned supine onto a hospital bed. The patient was extubated and taken to PACU in stable condition. The patient tolerated the procedure well and no complications occurred. Estimated blood loss for the entire surgery was 30 mL. No instrumentation was utilized in this case. No dural tear occurred in this case. I was present for the entirety of the case and performed the surgery myself. [employer]Ee Lead Saige Swain PA-C. My physician teaching assistant was a vital part of this case. They were important in appropriate retraction during the case, and protection of soft tissues during the procedure. Their intimate knowledge of the case and my steps aided in safe and expedient completion of the procedure as well as appropriate position of the patient during the surgery. They were also vital in assisting with closure under my direct supervision. Surgical Findings: See operative note Complications Complications: No
--- NOTE | 2024-11-02 16:47 | PCM.POST.ANE ---
Anesthesia: Postop Eval I Current Vital Signs Temperature: 97 F Pulse Rate: 65 Blood Pressure: 119/57 Respiratory Rate: 14 Pulse Ox: 96 Assessment Airway patent: Yes Spontaneous unlabored respirations: Yes nausea: No Vomiting: No Anesthesia Complication: No Fluid Hydration Crystalloid volume administer (ml): 1,900 Total IV fluid infused: 1,900 Progress Note Anesthesia document: Postop Eval 1 completed: Yes
--- NOTE | 2024-11-02 17:05 | POSTOPAN2_ITS ---
Anesthesia Postop Eval I Sum Postop Eval Completion status Anesthesia document: Postop Eval 1 completed: Yes Anesthesia Postop Eval I Summary Anesthesia Postop Eval I Summary: Anesthesia Postop Eval I: Assessment Summary Airway patent Yes 11/02/24 16:47 MASTER [email or web address] Spontaneous unlabored Yes 11/02/24 16:47 MASTER [email or web address] respirations Mental status nausea No 11/02/24 16:47 MASTER [email or web address].TNES Vomiting No 11/02/24 16:47 MASTER [email or web address] Anesthesia Postop Eval I: Fluid Summary Crystalloid volume administer 1,900 11/02/24 16:47 MASTER [email or web address] (ml) Colloids volume administered ( ml) Blood Product volume administered (ml) Total IV fluid infused 1,900 11/02/24 16:47 MASTER [email or web address] Anesthesia Postop Eval I: Summary Notes Anesthesia Complication No 11/02/24 16:47 MASTER [email or web address].TNES Anesthesia Complication Comment: Post-operative progress note Anesthesia: Postop Eval II Evaluation Mental status: Awake and Calm Pain Level: 1 nausea: No Vomiting: No Complications Anesthesia Complication: No
--- NOTE | 2024-11-02 17:05 | PCM.POSTANE2 ---
Anesthesia Postop Eval I Sum Postop Eval Completion status Anesthesia document: Postop Eval 1 completed: Yes Anesthesia Postop Eval I Summary Anesthesia Postop Eval I Summary: Anesthesia Postop Eval I: Assessment Summary Airway patent Yes 11/02/24 16:47 [email or web address] [email or web address] Spontaneous unlabored Yes 11/02/24 16:47 MARKET [email or web address].[email or web address] respirations Mental status nausea No 11/02/24 16:47 MARKET [email or web address].[email or web address] Vomiting No 11/02/24 16:47 MARKET [email or web address].[email or web address] Anesthesia Postop Eval I: Fluid Summary Crystalloid volume administer 1,900 11/02/24 16:47 MARKET [email or web address].TNES (ml) Colloids volume administered ( ml) Blood Product volume administered (ml) Total IV fluid infused 1,900 11/02/24 16:47 MARKET [email or web address].[email or web address] Anesthesia Postop Eval I: Summary Notes Anesthesia Complication No 11/02/24 16:47 MARKET [email or web address].[email or web address] Anesthesia Complication Comment: Post-operative progress note Anesthesia: Postop Eval II Evaluation Mental status: Awake and Calm Pain Level: 1 nausea: No Vomiting: No Complications Anesthesia Complication: No
--- NOTE | 2024-11-02 18:16 | PCM.CONS.GEN ---
Assessment & Plan Assessment/Plan (1) Lumbar stenosis with neurogenic claudication: PLAN: Plan Patient is a 69-year-old male who presented to [facility] on 11/02/2024 for planned lumbar procedure. Medicine consulted postoperatively for medical management. 1. L3-5 stenosis with neurogenic claudication ? Orthopedic surgery primary. S/p L3-5 laminectomy with partial facetectomy decompression with Dr. Chavez on 11/02. Tolerated procedure well. Postoperative pain control, DVT prophylaxis and further management per orthopedics. PT/OT/case management consulted. Follow-up a.m. labs. 2. Hypertension ? Normotensive postoperatively. Continue home atenolol. 3. History of nonobstructive PAD with intermittent claudication ? Follows with vascular surgery, last office visit in February 2024. Has history of mild to moderate bilateral PAD with associated intermittent claudication. He is on home baby aspirin for this. Will defer to orthopedics on timing of restarting aspirin. Total clinical time spent by myself addressing the patient's medical issues, reviewing all the data, and collaborating with patient's care team: 35 minutes. HPI Consult Data Date of Consult: 11/02/24 HPI Narrative Reason for Consultation: Postoperative medical management HPI Narrative: ALFREDO BARROSO, is a 69 M who presented to [facility] on 11/02/2024 for planned orthopedic procedure. Medicine consulted postoperatively for medical management. Patient had L3-5 laminectomy with partial facetectomy decompression procedure done with Dr. Chavez today. Tolerated procedure well. I saw the patient at bedside this evening, was present. Patient was somewhat somnolent presumed due to the anesthesia and was on 4 L nasal cannula but he was breathing comfortably and answering questions with short appropriate responses. He denied any pain or discomfort in his low back currently. Denies any other acute concerns at this time. [facility] Medical History Wears glasses Cancer Marijuana use Arthritis High cholesterol Back pain History of diverticulitis COPD (chronic obstructive pulmonary disease) Non-smoker Cardiology follow-up encounter History of pain when walking Hypertension History of stress test PAD (peripheral artery disease) Vertigo, intermittent Syncope and collapse Home Medications ?Medication ?Instructions ?Recorded ?Last Taken ?Type aspirin 81 mg tablet,delayed 81 mg PO QDAY 03/25/24 10/26/24 History release atenolol 25 mg tablet 12.5 mg PO QHS 03/25/24 11/01/24 21:35 History cholecalciferol (vitamin D3) 75 75 mcg PO QDAY 03/25/24 10/29/24 History mcg (3,000 unit) tablet coenzyme Q10 100 mg capsule 100 mg PO QDAY 03/25/24 10/29/24 History (CoQ-10) cyanocobalamin (vitamin B-12) 500 500 mcg sublingual QDAY 03/25/24 10/29/24 History mcg disintegrating tablet,sublingual vitamin K2 100 mcg capsule 100 mcg PO QDAY 03/25/24 10/29/24 History zinc sulfate 50 mg zinc (220 mg) 50 mg PO QDAY 03/25/24 10/29/24 History capsule (Zinc-220) Allergy/AdvReac Type Severity Reaction Status Date / Time No Known Allergies Allergy Verified 11/02/24 12:35 Family History Grandmother Heart disease Father Heart disease Brother Diabetes Surgical History Hx of colonoscopy History of Mohs surgery for squamous cell carcinoma of skin Hx of appendectomy Social History Smoking Status: Former smoker Tobacco: How many years used: 53 alcohol intake: never substance use type: does not use ROS Constitutional Constitutional: Denies chills, fatigue, fever(s) or weakness Cardiovascular Cardiovascular: Denies chest pain Respiratory/Chest Respiratory/Chest: Denies shortness of breath at rest Gastrointestinal Gastrointestinal: Denies abdominal pain Musculoskeletal Musculoskeletal: Denies arthralgias, back pain or myalgias Physical Exam Const alert, oriented x3, no apparent distress and average body habitus Constitutional Narrative: Elderly male, mildly somnolent appearing but otherwise alert and oriented, answering questions with short appropriate responses, laying back comfortably in bed, in no acute distress. General Appearance: cooperative and comfortable HEENT normocephalic, head/scalp atraumatic, hearing grossly normal bilaterally, nasal mucous membranes and turbinates normal and moist oral mucous membranes Eyes PERRL, EOMs intact bilaterally and conjunctivae normal Neck full ROM Chest inspection of chest normal Resp normal respiratory effort and no use of accessory muscles Resp Narrative: Breathing comfortably on 4 L nasal cannula at rest. Mildly diminished breath sounds bilaterally throughout but no wheezing or crackles noted. Cardio regular rate, regular rhythm, no murmurs and peripheral pulses 2+ throughout GI normal to inspection, nondistended, normoactive bowel sounds, soft to palpation, non-tender and non-distended Back/Spine Back/Spine Narrative: Surgical dressing noted at incision site. No tenderness to palpation noted. Extremity normal to inspection and no pedal edema Skin no rashes or lesions noted Neuro moves all extremities and no focal motor deficits Psych mental status grossly normal Lab / Micro Data 10/22/24 10:56 10/22/24 10:56 Charges/Coding Visit Charges Inpatient E&M: 62131 Subs Hosp L2
[2024-11-02] MEDS: 0.9% Normal Saline (250mL Bag) 250 ML 15 ML IV (18:44)
[2024-11-02] MEDS: 0.9% Saline Lock 10 ML Syringe IV (20:25)
[2024-11-02] MEDS: Senna/Docusate Sodium 1 Tablet 2 TABLET PO (20:33)
[2024-11-02] MEDS: Cefazolin 2 GM in 0.9% Normal Saline (100mL Bag) 100 ML IV (22:32)
[2024-11-03 00:01] VITALS: BP 142/68; PULSE 74; RESP 16; TEMP 36.1; O2SAT 93
[2024-11-03 04:20] VITALS: BP 142/67; PULSE 67; RESP 16; TEMP 37.2; O2SAT 95
[2024-11-03 04:47] LABS: Hematocrit 39.5 % (40-54); Hemoglobin 13.2 g/dL (13.0-16.5); Immature Granulocytes Count 0.040 X10^3/uL (0.0-0.0); Mean Corp Hgb Conc 33.4 g/dL (32-36); Mean Corpuscular Volume 91.2 fL (80-94); Mean Platelet Vol. 9.5 fl (6.2-12.0); NRBC Flagged by Analyzer 0 % (0-5); Platelet Count 234 K/mm3 (150-450); RBC Distribution Width CV 13.7 % (11.6-14.6); RBC Distribution Width SD 46.1 fl (35.1-43.9); Red Blood Count 4.33 M/mm3 (4.6-6.2); White Blood Count 10.7 K/mm3 (4.4-11.0)
[2024-11-03 05:20] LABS: Anion Gap 11 (5-15); BUN 20 mg/dL (4-19); BUN/Creat Ratio 11.9 RATIO (10-20); Calcium,Total 9.1 mg/dL (7.6-11.0); Carbon Dioxide 21.0 mmol/L (21.0-32.0); Chloride 106 mmol/L (98-108); Estimated Creatinine Clearance 45.55 ml/min (50-250); Glucose 136 mg/dL (70-99); Potassium 5.1 mmol/L (3.3-5.1)
[2024-11-03] MEDS: 0.9% Saline Lock 10 ML Syringe IV (05:52)
[2024-11-03] MEDS: Cefazolin 2 GM in 0.9% Normal Saline (100mL Bag) 100 ML IV (05:52)
[2024-11-03 08:00] VITALS: BP 148/73; PULSE 80; RESP 14; TEMP 36.8; O2SAT 96
[2024-11-03] MEDS: Senna/Docusate Sodium 1 Tablet 2 TABLET PO (08:21)
[2024-11-03] MEDS: Ensure Surgery 237 ML LIQUID PO (08:22)
--- NOTE | 2024-11-03 11:01 | CASEMGMT ---
Pt with dc order placed. No therapy recommended. Pt has FWW at home.
--- NOTE | 2024-11-03 11:31 | PHA.DC.MC.R ---
Pharmacy [facility] Counseling Pharmacy Service has performed discharge medication reconciliation and counseling for this patient. 1. ACETAMINOPHEN 500MG PO Q6 2. HYDROCODONE/ACETAMINOPHEN 5/325MG PO Q6H PRN PAIN 3. METHOCARBAMOL 750MG PO TID PRN MUSCLE PAIN/SPASMS 4. SENNA/DOCUSATE 2T PO BID PRN CONSTIPATION 5. RESUME ASPIRIN 11/05 The patient's discharge medication list was reviewed for discrepancies and discrepancies were resolved. The patient was counseled on the following discharge medications and changes in medications for homegoing were reviewed. The Reason for Use, instructions for use, and potential side effects were reviewed for all new medications. The patient's questions regarding all of their medications were answered. The patient was able to verbally demonstrate an understanding of their discharge medications. Medications at Discharge Home Medications aspirin 81 mg tablet,delayed release 81 mg PO QDAY 03/25/24 Held on 11/03/24. Instructions: Resume on 11/05/24. atenolol 25 mg tablet 12.5 mg PO QHS 03/25/24 cholecalciferol (vitamin D3) 75 mcg (3,000 unit) tablet 75 mcg PO QDAY 03/25/24 coenzyme Q10 100 mg capsule (CoQ-10) 100 mg PO QDAY 03/25/24 cyanocobalamin (vitamin B-12) 500 mcg disintegrating tablet,sublingual 500 mcg sublingual QDAY 03/25/24 vitamin K2 100 mcg capsule 100 mcg PO QDAY 03/25/24 zinc sulfate 50 mg zinc (220 mg) capsule (Zinc-220) 50 mg PO QDAY 03/25/24 acetaminophen 500 mg tablet 500 mg PO Q6H #30 tabs 11/03/24 hydrocodone-acetaminophen 5-325mg 5mg-325mg 1 tab PO Q6H PRN pain 7 days #28 tabs 11/03/24 methocarbamol 500 mg tablet 750 mg (1.5 x 500 mg) PO TID PRN pain/spasms #60 tabs 11/03/24 sennosides 8.6 mg-docusate sodium 50 mg tablet (Stimulant Laxative Plus) 2 tab PO BID PRN constipation #14 tabs 11/03/24
--- NOTE | 2024-11-03 11:44 | DCINST_ITS ---
Discharge Instructions DC O2, CPAP, BIPAP needs Home O2 Discharge instructions: No Follow Up Care Test Results: Test results from this visit will be discussed in further detail at your follow- up appointment, if applicable. Discharge Plan Admission Admit Date/Time: 11/02/24 16:38 Attending Provider: Apolinar Chavez Primary Care Provider: Summer Pereyra Consulting Providers: Haylee Elizondo; Edward Castro Instructions Patient Instructions: Laminectomy Dc Additional Instructions / Restrictions: Keep Tegaderm and gauze clean and dry. If Tegaderm is intact, okay to shower. After 5 days remove Tegaderm and gauze and cover with a Band-Aid. Replace Band- Aid daily thereafter. No bending lifting or twisting. Follow-up in clinic in 2 weeks. Discharge Orders/Prescriptions Prescriptions: New acetaminophen 500 mg Tablet 500 mg PO Q6H Qty: 30 0RF hydrocodone-acetaminophen 5-325 mg Tablet 1 tab PO Q6H PRN (Reason: pain) 7 Days Qty: 28 0RF methocarbamol 500 mg Tablet 750 mg PO TID PRN (Reason: pain/spasms) Qty: 60 0RF sennosides-docusate sodium [Stimulant Laxative Plus] 8.6-50 mg Tablet 2 tab PO BID PRN (Reason: constipation) Qty: 14 0RF Continued atenolol 25 mg tablet 12.5 mg PO QHS cyanocobalamin (vitamin B-12) 500 mcg tablet,disintegrating 500 mcg sublingual QDAY coenzyme Q10 [CoQ-10] 100 mg capsule 100 mg PO QDAY zinc sulfate [Zinc-220] 50 mg zinc (220 mg) capsule 50 mg PO QDAY cholecalciferol (vitamin D3) 75 mcg (3,000 unit) tablet 75 mcg PO QDAY Rx Instructions: 5,000IU vitamin K2 100 mcg capsule 100 mcg PO QDAY Patient Comments: K2/MK7 vitamin Held aspirin 81 mg tablet,delayed release (DR/EC) 81 mg PO QDAY Hold Instructions: Resume on 11/05/24. Referrals / Follow Up: Summer Pereyra DO [Primary Care Provider] - Disposition Disposition (needs filled in before D/C Order can be placed): Home, Self Care
[2024-11-03] MEDS: HYDROcodone Bitartrate/Apap 5/325 Tablet PO (11:51)
--- NOTE | 2024-11-03 12:07 | PCM.PN.ORT ---
Subjective Subjective Postop day 1 L3-5 laminectomy. Patient is doing well postoperatively with his pain well-controlled. Patient has been up and walking. Patient was seen while sitting edge of bed today. Seen with Dr. Chavez. Objective Data Objective Data Vital Signs: Vital Signs Temp Pulse Resp BP Pulse Ox O2 Del Method O2 Flow Rate 98.2 F 80 14 148/73 H 96 Room Air 4 11/03/24 08:00 11/03/24 08:00 11/03/24 08:00 11/03/24 08:00 11/03/24 08:00 11/03/24 08:00 11/02/24 18:23 Oxygen Flow Rate (L/min) 4 Oxygen Delivery Method Room Air Weight: 198 lb 6 oz Body Mass Index (BMI) 26.9 Intake & Output: Intake and Output for Last 24 Hours 11/01/24 11/02/24 11/03/24 23:59 23:59 23:59 Intake Total 1320.00 / 1320.00 115.25 / 115.25 Output Total 450 / 450 Balance 1300.00 / 1300.00 -334.75 / -334.75 Lab / Micro Data 11/03/24 04:11 11/03/24 04:11 Labs: Laboratory Results - last 24 hr 11/03/24 04:11: WBC 10.7, RBC 4.33 L, Hgb 13.2, Hct 39.5 L, MCV 91.2, MCH 30.5, MCHC 33.4, RDW Std Deviation 46.1 H, RDW Coeff of Arielle 13.7, Plt Count 234, MPV 9.5, Immature Gran % (Auto) 0.400, Neut % (Auto) 83.2 H, Lymph % (Auto) 12.8 L, [place] % (Auto) 3.4, Eos % (Auto) 0.0, Baso % (Auto) 0.2, Absolute Neuts (auto) 8.9 H, Absolute Lymphs (auto) 1.36, Nucleated RBC % 0, Sodium 138, Potassium 5.1, Chloride 106, Carbon Dioxide 21.0, Anion Gap 11, BUN 20 H, Creatinine 1.68 H, Estim Creat Clear Calc 45.55 L, Est GFR (MDRD) Non-Af 44 L, BUN/Creatinine Ratio 11.9, Glucose 136 H, Calcium 9.1 Micro: Microbiology 10/22/24 10:56 Swab (Method) Nasal Screen MRSA/MSSA - Final Radiography Diagnostic Testing: Radiology Impression C-Arm Fluoroscopy 11/02/24 14:50 IMPRESSION: Intraoperative fluoroscopy for lumbar surgery was performed. A solitary fluoroscopic image is also presented, with marker seen posterior to the L3-L4 interspace.. Reading Location: [place] [address] Lumbar Spine X-Ray 11/02/24 14:50 IMPRESSION: Intraoperative fluoroscopy for lumbar surgery was performed. A solitary fluoroscopic image is also presented, with marker seen posterior to the L3-L4 interspace.. Reading Location: [place] [address] Physical Exam Narrative Neurological examination of the lower extremity shows 5X5 power. Normal sensation across all dermatomes. Physical examination of the back shows Tegaderm and gauze CDI. Const alert, oriented x3 and no apparent distress Assessment & Plan Assessment/Plan (1) Status post laminectomy: PLAN: Plan Postop day 1 L3-5 laminectomy. Pain well-controlled. PT/OT cleared. Reviewed and educated on the use of the incentive spirometer. Plan for discharge home today. Home-going meds include [place], methocarbamol, Tylenol, senna. OARRS reviewed. Reviewed restrictions and no bending, lifting, twisting. Follow-up in the clinic in 2 weeks. Malini will be removed at that time. Patient is in agreement.
== END 2024-11-03 12:17 | disposition home or self-care (01) ==
LOC: SDC 17:29 → MS3 17:29
PROVIDERS: Anesthesiology; Student in an Organized Health Care Education/Training Program; Admitting Provider Orthopaedic Surgery Orthopaedic Surgery of the Spine; PCP Internal Medicine; Referring Provider Orthopaedic Surgery Orthopaedic Surgery of the Spine; Visit Provider Orthopaedic Surgery Orthopaedic Surgery of the Spine
PROC: (CPT 63030; principal; 2024-11-02 13:45)
DX: M48.062 Spinal stenosis, lumbar region with neurogenic claudication (principal); J44.9 Chronic obstructive pulmonary disease, unspecified; R26.2 Difficulty in walking, not elsewhere classified; E78.00 Pure hypercholesterolemia, unspecified; Z87.891 Personal history of nicotine dependence; I10 Essential (primary) hypertension; Z79.82 Long term (current) use of aspirin; Z79.899 Other long term (current) drug therapy
CPT/HCPCS: 63047; 63048; 00630; 36415; 72100; 76000; 80048; 80061; 82962; 83036; 83735; 84153; 84443; 85025; 86850; 86900; 86901; 87081; 93005; 94668; 96365; 96366; 96375; 97162; 99221; A4216; G0103; G0378; J2405; J3475

== ENCOUNTER 2024-12-17 11:30 | Outpatient (RCR) | payer MEDICARE, SELFPAY ==
--- NOTE | 2024-11-23 13:54 | HP.PTEVAL ---
Patient's Visit Information Visit Information Visit Information: ALFREDO BARROSO is a 69 year old M referred to Physical Therapy by TOO Bustos with a diagnosis of SPECIFIED POSTPROCEDURAL STATUS. Date of Evaluation: 11/23/24 Physical Therapist: Krunal Azevedo, PT, Cert MDT, OCS Visit Plan Frequency: 2x /Week Duration: 6 Weeks Plan: S/P LUMBAR LAMINECTOMY L3-5 11/02 PT INTERVENTIONS DLS ,POSTURAL EX'S ,BLE STRENGTHENING , BLE FLEXABILITY AND ACTIVITY MODIFICATION Subjective Subjective: This 69 y/o male presents to physical therapy s/p lumbar discectomy on Nov [address] Chavez at [facility]. Recently ,seen Israel Swain recommended PT , restriction < 10# and No BLT. Stated lump in back above incision well get better. Medication muscle relaxer.Prior to surgery to surgery paresthesia in legs which has improved post surgery. Patient tries chiropractor. MRI showed stenosis.Aggravating factors standing /sitting ,walking feels in back. Alleviating factors rest. Denies paresthesia/tingling-. Coughing/sneezing- Bowel/bladder-. Sleeping good. Less stiff in morning. Patient condition affects QOL and function. Goals to get stronger. SOCIAL: VOCATION: retired Pain Bilateral Back: Pain Intensity (Out of 10): 2 Pain Intensity Range: 5, 6 and 10 Objective Objective: POSTURE: mild forward posture GAIT: reciprocal pattern INCISION: well approximate dry ,mild redness ,bump superior FLEXABILITY: hamstrings mod tight LUMBAR ROM: flexion mod loss ,extension mod/severe loss ,side glides mod loss MMT: quads/hams 4/5 ,hip flexion 4-/5 ,ankle 4/5 Special Tests L/S Slump test left side: Negative L/S Slump test right side: Negative L/S Left Straight Leg Raise: Negative L/S Right Straight Leg Raise: Negative Balance/Special Test Scores Oswestry Low Back Score: 21 Goals Goal 1:: Patient to be I with HEP for back Goal Time Frame: 4-6 Weeks Goal 2:: Patient to improve back oswestry score by 5 points to improve QOL Goal Time Frame: 4-6 Weeks Goal 3:: Patient to improve lumbar ROM for function of recovery to put on shoes and ADLS Goal Time Frame: 4-6 Weeks Goal 4:: Patient to demonstrate 50% improvement with ADLS and housework tasks Goal Time Frame: 4-6 Weeks Goal 5:: Patient to return to prior level of function for ADL's /housework with standing/walking w/o limitations. Goal Time Frame: 4-6 Weeks Rehabilitation Potential Physical Therapy Diagnosis: This patient underwent s/p L3-4 Lumbar laminectomy Sept 8th with decrease ROM ,pain ,weakness ,impaired standing walking ,causes deficits in ADLS thus benefit from skilled PT Rehabilitation Potential: Good Anticipated Interventions Patient/Client Instruction: Educate patient on: Condition and Plan of Care For the Purpose of:: To decrease pain, To increase ROM, To improve muscle performance and motor function, To improve ability to perform ADL's, To increase tolerance to activity/condition/position, To improve ability of physical actions for home/community/work/leisure, To improve health of tissue, To decrease soft tissue restriction and To increase flexibility/ROM Therapeutic Exercise to Include: Strength training, Body mechanics, Postural training, Flexibilty training, Active ROM and Dynamic Lumbar Stabilization For the Purpose of:: To decrease pain, To increase ROM, To improve muscle performance and motor function, To improve ability to perform ADL's, To improve ability of physical actions for home/community/work/leisure, To improve health of tissue, To decrease soft tissue restriction, To increase flexibility/ROM and To improve tolerance to ADL's Cryotherapy (ice pack, ice massage): Yes Thermo therapy (hot pack): Yes For the Purpose of:: To decrease pain and To decrease swelling/inflammation Text: Thank you for the opportunity to evaluate your patient. For Medicare and Medicare HMO plans, please review the plan of care and approve it. It will need to be FAXED BACK to us at [phone] for Medicare purposes. For Medicare only, by signing this I certify the plan of care. Please let me know if there are questions or concerns regarding this plan of care. Physician Signature: Date:
--- NOTE | 2024-12-17 12:13 | HP.PTDCSUM ---
Discharge Summary D/C summary: It has been my pleasure to treat ALFREDO BARROSO referred by TOO Bustos, with the diagnosis of SPECIFIED POSTPROCEDURAL STATUS for a total of 7 visit(s). Discharge Date: 12/17/24 Please see the following information for a summary of their discharge status. Subjective Subjective: See 2weeks DR Hines to have paresthesia 30 min with standing Lump on back Able to lay down Walking good Doing light housework task Pain Bilateral Back: Pain Intensity (Out of 10): 0 Overall Improvement % Improvement: 80 Objective Objective/Function: POSTURE: mild forward posture GAIT: reciprocal pattern INCISION: soft bump superior FLEXABILITY: hamstrings mod tight LUMBAR ROM: flexion mIN loss ,extension mod loss ,side glides MIN loss MMT: quads/hams 4/5 ,hip flexion 4-/5 ,ankle 4/5 Goals Goal 1:: Patient to be I with HEP for back Goal Progress: Goal Met Goal 2:: Patient to improve back oswestry score by 5 points to improve QOL Goal Progress: Goal Met Goal 3:: Patient to improve lumbar ROM for function of recovery to put on shoes and ADLS Goal Progress: Goal Met Goal 4:: Patient to demonstrate 50% improvement with ADLS and housework tasks Goal Progress: Goal Met Goal 5:: Patient to return to prior level of function for ADL's /housework with standing/walking w/o limitations. Goal Progress: Goal Met Plan Plan: D/C TO HEP D/C Information Discharge Comments: hep d/c sentence: If there are questions or concerns regarding this patient's physical therapy, please feel free to call me at [phone]. Thank you for the referral of this patient. Sincerely, Krunal Azevedo, PT, Cert MDT, OCS Balance/Gait/Functional tests Balance/Special Test Scores Oswestry Low Back Score: 12 Improvement % Improvement: 80
== END 2024-12-17 19:00 | disposition home or self-care (01) ==
LOC: PT 11:30
PROVIDERS: PCP Internal Medicine; Referring Provider Student in an Organized Health Care Education/Training Program; Visit Provider Student in an Organized Health Care Education/Training Program
DX: Z98.890 Other specified postprocedural states (principal)
CPT/HCPCS: 97110; 97162; 97530